=== PATIENT | male | born 1970 | race Two or more races ===

== ENCOUNTER 2018-03-06 23:06 | Emergency (ER) | payer SELFPAY ==
[~2018-03-06] VITALS: Ht 167.6 cm; Wt 86.4 kg
[2018-03-07] MEDS ORDERED: LIDOCAINE HCL 1% 10 ML VIAL ONE (03:35)
[2018-03-07] MEDS ORDERED: LIDOCAINE HCL 1% 10 ML VIAL INJ ONE (03:45)
[2018-03-07 04:28] VITALS: BP 131/80
== END 2018-03-07 04:31 | disposition home or self-care (01) ==
LOC: EMS 23:07
DX: S01.81XA Laceration without foreign body of other part of head, initial encounter (principal); Z23 Encounter for immunization; Y04.0XXA Assault by unarmed brawl or fight, initial encounter; Y93.89 Activity, other specified; Y92.89 Other specified places as the place of occurrence of the external cause; Y99.8 Other external cause status
CPT/HCPCS: 12013; 36415; 70450; 72125; 99285; G0480; J3490